=== PATIENT | female | born 1990 | race Hispanic/Latino ===

== ENCOUNTER 2017-07-25 15:44 | Outpatient (CLI) | payer MEDICAID | END 2017-07-25 15:45 | disposition home or self-care (01) | LOC: BICULT 15:44 | PROVIDERS: ATTEND Family Medicine | DX: N64.4 Mastodynia (principal) ==

== ENCOUNTER 2018-08-27 15:25 | Emergency (ER) | payer MEDICAID, SELFPAY ==
[2018-08-27 15:51] LABS: #Basophils 0.1 thou/uL (0.0-0.2); #Eosinphils 0.4 thou/uL (0.0-0.7); #Lymphocytes 2.6 thou/uL (1.20-3.40); #Monocytes 0.6 thou/uL (0.11-0.59); #Neutrophils 4.2 thou/uL (1.40-6.50); %Basophils 0.7 % (0.0-1.0); %Eosinophils 5.1 % (0.0-10.0); %Lymphocytes 32.8 % (21.0-51.0); %Monocytes 7.5 % (0.0-10.0); Mean Corpuscular HGB CONC 33.8 g/dL (32.0-36.0); Mean Corpuscular Hemoglobin 29.5 pg (27.0-31.0); Mean Corpuscular Volume 87.1 fL (78.0-98.0); Mean Platelet Volume 7.4 fL (7.4-10.4); Platelet Count 331 thou/uL (130-400); RBC Distribution Width 11.6 % (11.5-14.5); Red Blood Cell (RBC) Count 4.77 mill/uL (4.20-5.40); White Blood Cell (WBC) Count 7.8 thou/uL (4.8-10.8)
[2018-08-27 16:24] LABS: ALT (SGPT) 60 U/L (8-55); AST (SGOT) 35 U/L (5-34); Albumin 4.4 g/dL (3.5-5.0); Alkaline Phosphatase 98 U/L (40-150); Anion Gap 16 mmol/L (10-20); BUN (Urea Nitrogen) 8 mg/dL (7.0-18.7); Bilirubin, Total 0.3 mg/dL (0.2-1.2); Calc. Creatinine Clearance 0 mL/min (70-130); Calcium 9.6 mg/dL (7.8-10.44); Carbon Dioxide 20 mmol/L (22-29); Chloride 105 mmol/L (98-107); Estimated GFR-MDRD 90; Globulin 3.8 g/dL (2.4-3.5); Glucose 123 mg/dL (70-105); Potassium 4.2 mmol/L (3.5-5.1); Protein, Total 8.2 g/dL (6.0-8.3); Sodium 137 mmol/L (136-145)
[2018-08-27 16:29] LABS: BHCG - Serum Negative (NEGATIVE); Pregs Control Background? CLEAR/WHITE (CLR/WHITE); Pregs Control Bar Appear? YES (CONTROL BAR)
[2018-08-27 18:16] LABS: Bilirubin Negative (Negative); Blood, Urine Trace (Negative); Clarity CLOUDY (Clear); Glucose, Urine (Dipstick) Negative (Negative); Leukocyte Moderate (Negative); Nitrite Negative (Negative); Protein, Urine (Dipstick) 30 mg/dL (Neg-Trace); Specific Gravity, Urine 1.021 (1.002-1.036); Urobilinogen 0.2 mg/dL (0.2-1.0); pH, Urine 5.5 (5.0-9.0)
[2018-08-27 18:18] LABS: Bacteria/HPF 1+ HPF (None Seen)
[2018-08-27] MEDS ORDERED: Ketorolac Tromethamine 30 MG/ML VIAL ONE (18:18)
[2018-08-27 18:23] LABS: Pathc Cast-AUWi Flag 3.53 (0-2.49)
[2018-08-27 18:29] LABS: Hyaline Casts/LPF 0-3 HYALINE CAST LPF (0-3 Hyaline); Manual Microscopic Reviewed? No Path Casts Seen; RBC/HPF 0-3 HPF (0-3)
--- NOTE | 2018-08-27 18:53 | RAD ---
PORTABLE CHEST 08/27/18 PROVIDED CLINICAL HISTORY: Chest pain. FINDINGS: Comparison 07/13/08. Cardiac and mediastinal silhouette is within normal limits. Lungs appear clear. No pleural fluid or p neumothorax apparent. IMPRESSION: No evidence for an acute cardiopulmonary process. POS: [facility]
[2018-08-27] MEDS ORDERED: Morphine 4 MG/ML VIAL ONE (19:00)
[2018-08-27] MEDS ORDERED: Sulfameth/Trimethoprim DS 800-160mg TAB ONE (19:01)
[2018-08-27] MEDS ORDERED: cefTRIAXone\\ROCEPHIN 2 GM VIAL ONE (19:01)
--- NOTE | 2018-08-30 15:15 | EKG ---
Test Reason : DINH Blood Pressure : / mmHG Vent. Rate : 110 BPM Atrial Rate : 110 BPM P-R Int : 120 ms QRS Dur : 070 ms QT Int : 318 ms P-R-T Axes : 017 007 036 degrees QTc Int : 430 ms Sinus tachycardia Low voltage QRS Cannot rule out Anterior infarct , age undetermined Abnormal ECG Confirmed by MAU NEWMAN, BREANNA Rawls ([id number]), restaurant expeditor CASANDRA FLORENCE ([id number]) on 08/30/2018 3:15:02 PM Referred By: Confirmed By:BREANNA LEÓN MD
== END 2018-08-27 20:55 | disposition home or self-care (01) ==
LOC: ERS 15:25
DX: N12 Tubulo-interstitial nephritis, not specified as acute or chronic (principal); E05.90 Thyrotoxicosis, unspecified without thyrotoxic crisis or storm; Z79.899 Other long term (current) drug therapy
CPT/HCPCS: 36415; 71045; 80053; 81003; 81015; 84703; 85025; 93005; 96361; 96365; 96375; J0696; J1885; J2270

== ENCOUNTER 2019-01-14 21:11 | Emergency (ER) | payer OTHER ==
[2019-01-14 21:53] LABS: #Eosinphils 0.2 thou/uL (0.0-0.7); #Lymphocytes 3.8 thou/uL (1.20-3.40); #Monocytes 0.8 thou/uL (0.11-0.59); #Neutrophils 5.1 thou/uL (1.40-6.50); %Basophils 0.3 % (0.0-1.0); %Eosinophils 2.4 % (0.0-10.0); %Lymphocytes 38.3 % (21.0-51.0); %Monocytes 7.7 % (0.0-10.0); %Neutrophils 51.3 % (42.0-75.0); Mean Corpuscular HGB CONC 34.2 g/dL (32.0-36.0); Mean Corpuscular Volume 84.9 fL (78.0-98.0); Mean Platelet Volume 7.1 fL (7.4-10.4); Platelet Count 365 thou/uL (130-400); RBC Distribution Width 11.4 % (11.5-14.5); Red Blood Cell (RBC) Count 4.13 mill/uL (4.20-5.40); White Blood Cell (WBC) Count 9.9 thou/uL (4.8-10.8)
[2019-01-14 23:27] LABS: Bacteria/HPF None Seen HPF (None Seen); Bilirubin Negative (Negative); Blood, Urine Negative (Negative); Clarity Clear (Clear); Glucose, Urine (Dipstick) Normal (Negative); Leukocyte 25 Leu/uL (Negative); Nitrite Negative (Negative); Protein, Urine (Dipstick) Negative (Neg-Trace); RBC/HPF 0-3 HPF (0-3); Squamous Epithelial 0-3 HPF (0-3); Urobilinogen Normal mg/dL (Less than 2); WBC/HPF 0-3 HPF (0-3)
--- NOTE | 2019-01-15 08:12 | ULT ---
PRELIMINARY REPORT/[facility]/EMERGENCY AFTER HOURS PROCEDURE: PROCEDURE INFORMATION: Exam: US First Trimester, Transabdominal and US , Transvaginal US Duplex Artery an d Vein of the Abdominal and/or Reproductive Organs. Complete Ovaries Exam date and time: 01/14/2019 11:44 PM Clinical history: 28 years old, female; Lmp or gestational age (in weeks): 6w2d; Antepartum complicat ions; Bleeding; complicated by abdominal or pelvic pain; Lower; First trimester; ; Patient HX: Pelvic cramping pain, vaginal spotting tonight; Additional info: HX previous miscarriage TECHNIQUE: Imaging protocol: Real-time transabdominal obstetrical ultrasound of the maternal pelvis and a first trimester , less than 14 weeks 0 days, with image documentation. Transvaginal imaging was us ed for better evaluation of the fetus and adnexa. Real-time duplex ultrasound scan of the arterial and venous flow with color Doppler flow and spectral waveform analysis with image documentat ion. Complete duplex exam focused on the ovaries. Duplex exam was added to evaluate for torsion and o ther vascular conditions. COMPARISON: No relevant prior studies available. FINDINGS: Transabdominal ultrasound showed an intrauterine gestational sac. Transvaginal ultrasound was perform ed for evaluation of the pole. Duplex ultrasound scan with color Doppler flow and spectral wave form analysis was also performed for evaluation of pelvic and ovarian blood flow and torsion. GESTATION: Gestation: Single, living intrauterine gestation. Yolk sac is unremarkable. Heart rate: 120 bpm Placenta: Small subchorionic bleed. Amniotic fluid: Amniotic and chorionic fluid are normal for gestational age. BIOMETRY: Estimated gestational age: CRL 0.54 cm, 6w2d. MATERNAL: Uterus: Unremarkable. Cervix: Unremarkable. Right adnexa: Unremarkable. Normal duplex of the ovary. No evidence of torsion. Left adnexa: Left ovarian probable corpus luteal cyst. Otherwise unremarkable. Normal duplex of the o vary. No evidence of torsion. Intraperitoneal: No intraperitoneal free fluid. IMPRESSION: Single viable intrauterine . Small subchorionic hemorrhage. Thank you for allowing us to participate in the care of your patient. Dictated and Authenticated by: Jace Bravo MD 01/15/2019 12:40 AM Central Time ([place] & [place]) FINAL REPORT PELVIC ULTRASOUND: There is a viable single intrauterine . Evidence of a small subchorionic hemorrhage. I am in agreement with the preliminary report. POS: [facility]
== END 2019-01-15 01:28 | disposition home or self-care (01) ==
LOC: ERS 21:11
DX: O20.8 Other hemorrhage in early pregnancy (principal); O99.281 Endocrine, nutritional and metabolic diseases complicating pregnancy, first trimester; Z3A.01 Less than 8 weeks gestation of pregnancy
CPT/HCPCS: 36415; 76856; 81003; 81015; 84702; 85025; 86900; 86901

== ENCOUNTER 2019-01-15 06:45 | Outpatient (CLI) | payer OTHER ==
--- NOTE | 2019-01-15 08:06 | ULT ---
EXAM: Pelvic ultrasound HISTORY: Spotting in a female COMPARISON: None TECHNIQUE: Multiple grayscale and color Doppler images were obtained in a transabdominal and transvag inal pelvic ultrasound. Spectral analysis of the Doppler waveforms of the ovaries were performed. FINDINGS: UTERUS: There is an intrauterine gestational sac. This contains a yolk sac and pole. Hostetter-rump length: 6.76 mm which estimates gestational age at 6 weeks 4 days. A heart rate is detected at 114 bpm. A small hypoechoic region adjacent to the gestational saclike likely represents a small area of subch orionic hemorrhage. No free fluid is seen in the pelvis. RIGHT OVARY: Normal flow without focal mass. LEFT OVARY: Normal flow without focal mass. IMPRESSION: 1. Single live intrauterine with estimated age of 6 weeks 4 days. 2. Small subchorionic hemorrhage
== END 2019-01-15 06:46 | disposition home or self-care (01) ==
LOC: BICULT 06:45
DX: Z34.81 Encounter for supervision of other normal pregnancy, first trimester (principal); O99.89 Other specified diseases and conditions complicating pregnancy, childbirth and the puerperium; Z3A.01 Less than 8 weeks gestation of pregnancy
CPT/HCPCS: 76856

== ENCOUNTER 2019-01-25 17:44 | Emergency (ER) | payer OTHER ==
[2019-01-25 18:14] LABS: Hemoglobin 13.2 g/dL (12.0-16.0); Mean Corpuscular Hemoglobin 29.4 pg (27.0-31.0); Mean Corpuscular Volume 86.3 fL (78.0-98.0); Mean Platelet Volume 7.8 fL (7.4-10.4); Platelet Count 316 thou/uL (130-400); White Blood Cell (WBC) Count 21.3 thou/uL (4.8-10.8)
[2019-01-25] MEDS ORDERED: Dexamethasone 10 MG/ML VIAL ONE (18:31)
[2019-01-25] MEDS ORDERED: cefTRIAXone\\ROCEPHIN 2 GM VIAL ONE (18:31)
[2019-01-25 18:33] LABS: ALT (SGPT) 32 U/L (8-55); AST (SGOT) 17 U/L (5-34); Albumin 4.3 g/dL (3.5-5.0); Alkaline Phosphatase 73 U/L (40-110); Anion Gap 15 mmol/L (10-20); BUN (Urea Nitrogen) 7 mg/dL (7.0-18.7); Bilirubin, Total 0.5 mg/dL (0.2-1.2); Calc. Creatinine Clearance 0 mL/min (70-130); Calcium 9.2 mg/dL (7.8-10.44); Carbon Dioxide 17 mmol/L (22-29); Chloride 103 mmol/L (98-107); Estimated GFR-MDRD Greater than 90; Globulin 3.9 g/dL (2.4-3.5); Glucose 103 mg/dL (70-105); Potassium 3.9 mmol/L (3.5-5.1); Protein, Total 8.2 g/dL (6.0-8.3); Sodium 131 mmol/L (136-145)
[2019-01-25 18:34] LABS: Band 6 % (5-11); Lymphocytes 6 % (21-51); MDiff Complete? YES; Monocytes 8 % (0-10); Neutrophil 80 % (42-75); Platelet Morphology Comment Appears Adequate
[2019-01-25 18:47] LABS: Bilirubin Negative (Negative); Blood, Urine Negative (Negative); Clarity Turbid (Clear); Glucose, Urine (Dipstick) Normal (Negative); Leukocyte 250 Leu/uL (Negative); Nitrite Negative (Negative); Protein, Urine (Dipstick) Negative (Neg-Trace); RBC/HPF 0-3 HPF (0-3); Urobilinogen Normal mg/dL (Less than 2)
[2019-01-25 18:48] LABS: Bacteria/HPF 1+ HPF (None Seen)
== END 2019-01-25 19:55 | disposition home or self-care (01) ==
LOC: ERS 17:44
DX: O99.511 Diseases of the respiratory system complicating pregnancy, first trimester (principal); J02.0 Streptococcal pharyngitis; O99.281 Endocrine, nutritional and metabolic diseases complicating pregnancy, first trimester; E05.90 Thyrotoxicosis, unspecified without thyrotoxic crisis or storm; Z3A.08 8 weeks gestation of pregnancy
CPT/HCPCS: 80053; 81003; 81015; 83605; 85025; 87040; 87430; 93005; 96361; 96365; 96375; J0696; J1100

== ENCOUNTER 2019-04-22 09:47 | Outpatient (CLI) | payer OTHER ==
--- NOTE | 2019-04-22 11:47 | ULT ---
OB ULTRASOUND: HISTORY: anatomy. FINDINGS: A single live intrauterine gestation is seen with measurements corresponding to an estimated gestatio nal age of 20 weeks 3 days and an ROHIT of 09/06/2019. The estimated weight measures 352 g or 12 oz (29th percentile by Hadlock criteria). BIOMETRY: BPD: 4.69 cm (20 weeks 2 days) HC: 17.71 cm (20 weeks 2 days) AC: 15.32 cm (20 weeks 4 days) FL: 3.31 cm (20 weeks 3 days) heart rate measures 140 beats per minute. Cervical length measures 6 cm. BRIAN measures 14.7 cm. Placenta is posteriorly located without evidence of placenta previa. A low lying placenta is seen, wh ich appeared to resolve post urination. The spine was not well assessed due to movement. A three-vessel cord, cord insertion, kidneys, bladder, stomach, four-chambered heart, lateral v entricles, cerebellum, lips/nose and upper and lower extremities are visualized and are without defin ite anomalies. IMPRESSION: Single live intrauterine of 20 weeks' 3 days' estimated gestational age and an estimated da te of delivery of 09/06/2019. POS: [facility]
== END 2019-04-22 09:48 | disposition home or self-care (01) ==
LOC: BICULT 09:47
PROVIDERS: ATTEND Family Medicine
DX: Z34.82 Encounter for supervision of other normal pregnancy, second trimester (principal); Z3A.20 20 weeks gestation of pregnancy
CPT/HCPCS: 76805

== ENCOUNTER 2019-05-20 16:39 | Observation (INO) | payer MEDICAID, OTHER ==
[2019-05-20 17:25] VITALS: BP 116/59
[2019-05-20 17:26] VITALS: BMI 35.6
[2019-05-20] MEDS ORDERED: hydrALAZINE 20 MG/ML VIAL SLOW IVP PRN ×2 (17:43→20:30)
[2019-05-20 18:00] LABS: Amnisure Test No Membranes Rupture (No Rupture); Bacteria/HPF None Seen HPF (None Seen); Bilirubin Negative (Negative); Blood, Urine Negative (Negative); Clarity Clear (Clear); Glucose, Urine (Dipstick) Normal (Negative); Leukocyte Negative Leu/uL (Negative); Nitrite Negative (Negative); Protein, Urine (Dipstick) Negative (Neg-Trace); RBC/HPF None Seen HPF (0-3); Squamous Epithelial 0-3 HPF (0-3); Urobilinogen Normal mg/dL (Less than 2); WBC/HPF 0-3 HPF (0-3)
[2019-05-20 18:01] LABS: Amnisure Internal Control QC ACCEPTABLE (ACCEPTABLE)
--- NOTE | 2019-05-20 18:27 | ULT ---
[facility] History: Vaginal spotting. Questionable leakage of fluid. Comparison: OB ultrasound April 22, 2019 Findings: Real-time grayscale, color, and spectral analysis of the gravid uterus was performed. The position is vertex and the placenta is right fundal. Amniotic fluid index measures 8.7 cm. heart rate documented at 140 bpm. The cervix is closed and measures 3.5 cm in length. Biometry: Biparietal diameter: 5.89 cm, 24 week 1 day Head circumference: 22.47 cm, 24 week 2 day Abdominal circumference: 20.29 cm, 24 weeks 6 day Femur length: 4.26 cm, 23 weeks 6 day Estimated weight is 699 g, 29th percentile. Average ultrasound age is 24 week 2 day with estimated date of delivery September 07, 2019. Impression: Single viable intrauterine with amniotic fluid index of 8.7 cm. The cervix is c losed and measures 3.5 cm in length.
[2019-05-20] MEDS ORDERED: Butorphanol Tartrate 1 MG/ML VIAL SLOW IVP PRN (19:50)
[2019-05-20] MEDS ORDERED: Lactated Ringer's 1,000 ML IV SCH (20:00)
[2019-05-20] MEDS ORDERED: Promethazine HCl 25 MG/ML VIAL IM PRN (20:30)
[2019-05-20] MEDS ORDERED: Zolpidem Tartrate 5 MG TAB PO PRN (20:30)
[2019-05-20] MEDS ORDERED: Ondansetron PF 4 MG/2 ML Vial IVP PRN (20:30)
--- NOTE | 2019-05-20 20:34 | PDOC.LDHP ---
Labor and Delivery H&P Chief complaint: loss of fluid, other HPI: 28 yo LAF presents c/o cramping, spotting and possible LOF. Current gestational age (weeks): 24 Due date: 09/04/19 Dating criteria: last menstrual period Grav: 5 Para: 3 OB History Details: PNC with Dr. Sorensen, reports no complications Current complications: none Abnormal US findings: Yes (BRIAN=8) Past Medical History: none Current medications: pre- vitamins Previous surgical history: none Allergies/Adverse Reactions: Allergies Allergy/AdvReac Type Severity Reaction Status Date / Time No Known Drug Allergies Allergy Verified 05/20/19 17:23 Social history: none - Physical Exam Vital signs reviewed and normal: yes General: resting Lungs: nonlabored breathing Abdomen: gravid Extremeties: trace edema FHT: category 1 [place] contractions every: q 5-7 mins - Vaginal Exam cm dilated: 0 - Assessment 24 5/7 week IUP c/o Ucs UA and amniosure negative but BRIAN of 8 SSE is negative at this time - Plan Plan: observation in L&D (will OBs overnight and repeat SSE in AM)
[2019-05-20] MEDS: Lactated Ringer's 1,000 ML IV SCH (21:43)
[2019-05-20 22:10] VITALS: TEMP 98.3
[2019-05-21] MEDS: Lactated Ringer's 1,000 ML IV SCH (05:51)
--- NOTE | 2019-05-21 11:50 | ULT ---
LIMITED OB ULTRASOUND: Date: 05/21/2019 HISTORY: Evaluation for cervical length. FINDINGS: After translabial ultrasound, the cervical canal length shows to be at 3.2 cm. Fetus is vertex. Amnio tic fluid index is 10.6. IMPRESSION: 1. Amniotic fluid index of 10.6. 2. Cervical canal length of 3.2 cm. POS: [facility]
--- NOTE | 2019-05-22 00:33 | DIS ---
DATE OF ADMISSION: 05/20/2019 DATE OF DISCHARGE: 05/21/2019 ADMITTING DIAGNOSES: 1. Intrauterine at 24 weeks. 2. Vaginal spotting and cramping. Uterine contractions with threatened labor. DISCHARGE DIAGNOSES: 1. Intrauterine at 24 weeks. 2. Vaginal spotting and cramping. Uterine contractions with threatened labor. CONSULTATIONS: None. HOSPITAL COURSE: The patient is a 28-year-old G5, P3 female with an intrauterine at 24 weeks and 6 days, presenting to Labor and Delivery with complaints of cramping, spotting, or possible leakage of fluid. During the patient's evaluation, she was noted to have an BRIAN of 8. No evidence of urinary tract infection. AmniSure test was negative and sterile speculum exam was dry. However, given the overall picture, a conservative approach was taken and the patient was kept overnight for observation. This morning, the patient had initially felt some improvement in her cramping which changed to worsening of her cramping and some brown discharge. A repeat ultrasound this morning demonstrated a cervical length unchanged at 3.3 cm and BRIAN of 10 cm, improved from yesterday's measurements. The patient has been watched throughout the day here for any signs of worsening cramping, evidence of labor, leakage of fluid, or other concerning things. As such, none has occurred. The patient has continued to rest through the day without difficulty. No contractions are visible on the monitor. Fetus has had tracing that has been appropriate for 24-week gestation. This evening, the patient has been offered discharge home as that there has been no progression through the day. The patient feels comfortable going home and will be resting this weekend. PHYSICAL EXAMINATION: VITAL SIGNS: Her most recent vital signs; blood pressure is 120/78, heart rate of 85, respiratory rate of 20, temperature 97.9. GENERAL: She appears to be in no acute distress. ABDOMEN: Soft. : Repeat sterile speculum exam today showed very minimal dark brownish discharge, minimal in its nature and no active bleeding from the cervix. Cervix appears to be full, closed and nonlabored. On digital exam, the cervix feels closed and typical of multiparas individual. PLAN: The patient is being discharged home. She has an appointment to see Dr. Sorensen on the of the month. However, given her symptoms and presentation overnight, we have asked that she follow up with the nurse practitioner covering for Dr. Sorensen in the next week just for followup. The patient has been given labor precautions and again fetus is reassuring for gestational age. Job ID: [id number] [facility]
== END 2019-05-21 17:08 | disposition home health service (06) ==
LOC: L&D/OP 16:39 → L&D 20:30
PROVIDERS: ADMIT Obstetrics & Gynecology; ATTEND Obstetrics & Gynecology
DX: O26.852 Spotting complicating pregnancy, second trimester (principal); O47.02 False labor before 37 completed weeks of gestation, second trimester; Z3A.24 24 weeks gestation of pregnancy
CPT/HCPCS: 51701; 76815; 76816; 81003; 84112; 87480; 87510; 87660; 96361; 96374; 99285; A4353; G0378; J0595

== ENCOUNTER 2019-05-22 23:19 | Inpatient (IN) | payer OTHER ==
[2019-05-22 23:54] VITALS: BMI 35.9
[2019-05-23] MEDS ORDERED: Ondansetron PF 4 MG/2 ML Vial IVP PRN (00:43)
[2019-05-23] MEDS ORDERED: Promethazine HCl 25 MG/ML VIAL IM PRN (00:43)
[2019-05-23] MEDS ORDERED: hydrALAZINE 20 MG/ML VIAL SLOW IVP PRN ×2 (00:43)
--- NOTE | 2019-05-23 00:51 | PDOC.FPROB ---
FMR OB H&P: HPI - History of Present Illness Chief Complaint: vaginal bleeding, CTX Indentification: History of Present Illness: 28 yo at 25.1 wks (ROHIT 09/04/19) here for CTX and bleeding. Was discharged from the hospital yesterday afternoon. She had come b/o of same thing -CTX and VB. US was done which showed BRIAN ~8cm and CL ~3cm. Difficult to knot picker cloth CTX on monitor. She was admitted for obs overnight and repeat US showed BRIAN ~ 10cm with unchanged CL ~3cm. She was sent home with instructions to f/u. CTX became more frequent every 3-4 min this afternoon and had another episode of VB prompting her return. Denies any other sxs. No recent vaginal trauma. Endorsing frequent FM. No vaginal fluid loss. Primary Care Physician: Dr. Sorensen FMR OB H&P: Current - Care : 5 Para: 3 Gestational age: 25.1 Due date: 09/04/19 - OB Labs Blood type: unknown RH: unknown Antibody Screen: unknown HIV: unknown RPR: unknown HepBsAg: unknown Quad screen: unknown Gonorrhea: unknown Chlamydia: unknown FMR OB H&P: History - Past Medical History PMH: Denies - OB History OB History: 3 term 1 SAB at <10 wks - SAFETY COORDINATOR History SAFETY COORDINATOR History: Denies - Surgical History Sx History: Denies - Social History Social History: Denies TAD - Family History Family History: Non contributory FMR OB H&P: Medications - Current Home Medications: Medication Instructions Recorded Confirmed Type No.137/Iron/Folic Acd 1 tab PO DAILY 07/02/13 05/22/19 History [ Vitamin Tablet] Allergies/Adverse Reactions: Allergies Allergy/AdvReac Type Severity Reaction Status Date / Time No Known Drug Allergies Allergy Verified 05/20/19 17:23 FMR OB H&P: ROS - Review of Systems General: denies: fever/chills, weight/appetite/sleep changes ENT: denies: frequent nose bleed, sore throat Cardiovascular: denies: chest pain, palpitation Respiratory: denies: cough Gastrointestinal: denies: abdominal pain, cramping, nausea, vomiting Genitourinary (Female): reports: vaginal bleeding, contractions. denies: dysuria, hematuria, vaginal pain Musculoskeletal: denies: pain, stiffness, tenderness Neurologic: denies: numbness, syncope, weakness Endocrine: denies: cold intolerance, heat intolerance Psychological: denies: depression, anxiety FMR OB H&P: Vital Signs - Heart Tones Baseline: 150 Variability: moderate FMR OB H&P: Physical Exam - Physical Exam HEENT: normocephalic and atraumatic, EOMI, MMM, conjunctiva clear Neck: supple, FROM, trachea midline Heart: RRR, normal S1/S2 General: CTAB, no respiratory distress Abdomen: soft, gravid Skin: no rash, good tugor, capillary refill <2 seconds Psychiatric: intact recent and remote memory, good judgement and insight - Pelvic Exam Vulva: normal hair distribution, appropriate zion stage Deviation from normal: bloody mucoid discharge, cervix appears closed on exam, no pooling FMR OB H&P: A/P - Problem List (1) with 25 completed weeks gestation Current Visit: Yes Status: Acute Code(s): Z3A.25 - 25 WEEKS GESTATION OF (2) Vaginal bleeding Current Visit: Yes Status: Acute Code(s): N93.9 - ABNORMAL UTERINE AND VAGINAL BLEEDING, UNSPECIFIED Discussion: Date/Time: 05/23/19 0046 1. Vaginal bleeding & CTX in sIUP at 25 weeks-r/o PTL -Gross blood on exam, no identified site -FHT: 150, mod; unable to knot picker cloth CTX but pt reporting q3-4 min -Will give procardia per protocol -IVF bolus -stadol PRN for pain -U/S to assess cervical length & BRIAN -FFN sent -Steroids -Admit for observation overnight This H&P was discussed with Dr. Velasquez who agree with the above documentation and plan.
[2019-05-23] MEDS ORDERED: NIFEdipine 10 MG CAP PO SCH ×2 (01:00→01:30)
[2019-05-23 01:06] LABS: FFN Internal QC Analyzer PASS (PASS); FFN Internal QC Cassette PASS (PASS); Fetal Fibronectin POSITIVE (Negative)
[2019-05-23] MEDS: Lactated Ringer's 1,000 ML IV SCH ×3 (01:11→20:11)
[2019-05-23] MEDS: Betamet Acet/Betamet Na Ph 30 MG/5 ML VIAL IM SCH (01:41)
[2019-05-23 01:43] LABS: Hemoglobin 11.5 g/dL (12.0-16.0); Mean Corpuscular HGB CONC 33.7 g/dL (32.0-36.0); Mean Corpuscular Hemoglobin 29.6 pg (27.0-31.0); Mean Corpuscular Volume 87.8 fL (78.0-98.0); Mean Platelet Volume 8.5 fL (7.4-10.4); Platelet Count 281 thou/uL (130-400); RBC Distribution Width 11.4 % (11.5-14.5); Red Blood Cell (RBC) Count 3.87 mill/uL (4.20-5.40); White Blood Cell (WBC) Count 10.4 thou/uL (4.8-10.8)
--- NOTE | 2019-05-23 01:48 | PDOC.BPN ---
- Brief Progress Note Prelim U/S report shows CL 3.18cm, essentially unchanged from last one. 2.44cm through contraction. BRIAN 14cm. Starting nifedpine protocol. Discussed plan with patient.
[2019-05-23] MEDS ORDERED: Butorphanol Tartrate 1 MG/ML VIAL SLOW IVP PRN (02:13)
--- NOTE | 2019-05-23 02:13 | PDOC.BPN ---
- Brief Progress Note SVE: /high, CTX still difficult to pickling tank operator but went ahead and gave second dose of nifedpine Recheck in 4 hours
[2019-05-23 02:24] LABS: HBSAg Index 0.26 S/CO (0-0.99); Hep B Surf Ag Non-Reactive S/CO (NonReactive)
[2019-05-23 04:32] LABS: Syphilis Antibody Nonreactive (Nonreactive)
[2019-05-23] MEDS: NIFEdipine 10 MG CAP PO PRN ×2 (04:34→16:57)
--- NOTE | 2019-05-23 07:33 | PRG ---
DATE OF SERVICE: 05/23/2019 TIME OF SERVICE: 0710 hours. SUBJECTIVE: Ms. Yordan Rock is resting comfortably. She is hungry. She states her contractions have decreased. She reports an active fetus. She denies leakage of fluid or further vaginal bleeding. The patient remains afebrile with normal vital signs. Blood pressure is 100/68. heart rate tracing is in the 140s to 150s without decelerations noted. Contractions are not picked up on tocometer, but would not be expected due to the patient's obesity. The patient is a G5, P3. No history of previous deliveries at 25 weeks and 1 day with a cervix that is somewhat soft, which would not be uncommon for a grand multiparous patient, but was noted during contractions that the patient presented with shortened from 3.18 to 2.44 cm on dynamic real-time ultrasound. BRIAN was normal at 14 cm. The patient had previously been observed for contractions the day before. The patient has received one dose of corticosteroids at approximately midnight. PLAN: Continue labor and delivery observation. Would give Procardia again for contractions or magnesium sulfate for contractions worrisome for true labor. Repeat second dose of betamethasone at approximately midnight, we will obtain Neonatology consultation, anticipate that if the patient proceeds to true signs of labor with progression, would initiate transfer to tertiary care for higher level of care due to extreme prematurity at [address] Abby Reeder MD will be taking over her OB hospitalist at 0800 hours today. Job ID: [id number]
--- NOTE | 2019-05-23 09:42 | ULT ---
PRELIMINARY REPORT/[facility]/EMERGENCY AFTER HOURS PROCEDURE EXAM: US Obstetrical, Complete >14 weeks. CLINICAL HISTORY: HX: CONTRACTIONS AT 25WKS, VAG BLEEDING. SEE NOTES ON LAST IMAGE. THANKS TECHNIQUE: Transabdominal imaging of the maternal pelvis and a > 14 week gestation with image documen tation. COMPARISON: None provided. FINDINGS: FETUS: There is a single living intrauterine gestation, estimated clinical gestational age 25 weeks 1 day POSITION: position is cephalic. HEART RATE: The heart rate is 152 beats per minute. BIOMETRICS: Based on composite biometry, the estimated gestational age by ultrasound is 25 week s 0 days. ANATOMIC SURVEY: The visualized anatomy is unremarkable. PLACENTA: The placenta is located along the left lateral wall of the uterus extending towards the fun dus. No sonographic evidence for previa or abruption. AMNIOTIC FLUID: Within normal limits. CERVIX: Closed. Unremarkable as visualized. IMPRESSION: Single viable intrauterine . No acute abnormality. ELECTRONICALLY SIGNED BY: Joel Espitia DO May 23, 2019 2:43:42 AM FIBER WORKER FINAL REPORT OB ULTRASOUND: HISTORY: Contractions at 25 weeks, vaginal bleeding. FINDINGS: Real-time imaging of the pelvis shows a single viable intrauterine in a vertex presentation . The cervical canal length is 3.2 cm. The placenta is more fundal in location. No previa. The am niotic fluid index was 14.4. Visually the fluid appears borderline low. heart rate is 152 b.p .m. measurements are as follows: BPD 6.3 cm, 25 weeks 3 days Head circumference 22.7 cm, 24 weeks 5 days Abdominal circumference 20 cm, 24 weeks 4 days Femur length 4.6 cm, 25 weeks 3 days Limited evaluation of anatomy was performed on this more emergent exam. No abnormalities were grossly detected. IMPRESSION: 1. Single viable intrauterine in a vertex presentation. Overall measurements correspond t o a gestational age of 25 weeks 0 days with estimated date of delivery 09/05/2019. 2. Placenta which is more fundal in location. 3. This report is in agreement with the temporary report issued by [facility]. POS: [facility]
--- NOTE | 2019-05-23 19:16 | PDOC.NEOCO ---
- History Chief Complaint: vaginal bleeding & contractions History of Present Illness: 28 yo at 25.1 wks (ROHIT 09/04/19) here for CTX and bleeding. Was discharged from the hospital yesterday afternoon. She had come b/o of same thing -CTX and VB. US was done which showed BRIAN ~8cm and CL ~3cm. Difficult to continuous pickling line pickler CTX on monitor. She was admitted for obs overnight and repeat US showed BRIAN ~ 10cm with unchanged CL ~3cm. She was sent home with instructions to f/u. CTX became more frequent every 3-4 min this afternoon and had another episode of VB prompting her return. Denies any other sxs. No recent vaginal trauma. Endorsing frequent FM. No vaginal fluid loss. - Vital Signs Vital Signs are stable Admit Measurements Weight 97.976 kg - Diagnoses Patient Problems: Problem List Problem Status Onset with 25 completed weeks gestation Acute Vaginal bleeding Acute Spontaneous Vaginal Delivery Acute Plan: Plan: 28 yo at 25.1 wks (ROHIT 09/04/19) here for CTX and bleeding. Was discharged from the hospital yesterday afternoon. She had come b/o of same thing -CTX and VB. US was done which showed BRIAN ~8cm and CL ~3cm. Difficult to continuous pickling line pickler CTX on monitor. She was admitted for obs overnight and repeat US showed BRIAN ~ 10cm with unchanged CL ~3cm. She was sent home with instructions to f/u. CTX became more frequent every 3-4 min this afternoon and had another episode of VB prompting her return. Denies any other sxs. No recent vaginal trauma. Endorsing frequent FM. No vaginal fluid loss. I was consulted by Dr. Velasquez (OB Hospitalist) to talk with mom & discuss the short & prison complications associated with delivery at 25 weeks gestation. I met with both parents in mom's LDR 7 & discussed with them the survival at 25 weeks gestation, short term acute problems & continuous churn buttermaker problems & outcome. I explained to both parents that despite improved survival rate at 25 weeks gestation up to 70-80 %, these extremely low weight (ELBW) babies could have acute problems with include but not limited to: RDS & acute respiratory failure, PIE & pneumothorax, large PDA requiring medical treatment & if failed surgical ligation, Hypotension requiring support with dopamine, epinephrine & some times Hydrocortisone, Sepsis including fungal, bacterial & requiring antibiotic therapy, NEC & possible short gut syndrome if NEC is severe with loss of viable bowels, recurrent anemia requiring PRBC's transfusion , acute IVH ( Grade 1-4 ) with higher rate of grade 3 & 4 in (ELBW), ROP stage 1 -5 with possible need for laser surgery or anti VEGF intravitreal agent or surgery, feeding intolerance, apnea of prematurity, myopia, amblyopia, retinal detachment etc. I also discussed with her the possible prison p[roblems which include but not limited to: Chronic lung disease in some instances nasal cannula home treatment , tracheostomy & home vent treatment, also discussed with her the possibility of moderate to severe developmental delay especially if associated with grade 3 & 4 IVH, with possible affect on motor and sensory involvement including delated walking, delayed talking, speech impairment, cerebral palsy requiring physical therapy, occupational therapy, speech therapy treatment, need for referral for milk route supervisor intervention center in [facility] for F/U and management of cases according to the needs. I emphasized to her that not all 25 weeks premie will have all of the above findings, some will develop some of the above & some will have better prognosis if they do good during the course of hospitalization. I answered all mom questions to her satisfaction. The father did not have questions. I explained to the mom if she progress to deliver, we will have a team attending her baby's delivery & resuscitation & will update her once we stabilze the baby. Mom appreciated all of the information given & had no further questions. I spent 55 minutes in discussion of the above findings & answering her questions. Thank you for the consult. Azeem Perez MD Sql Analyst of Pediatrics [facility]
[2019-05-24] MEDS: Betamet Acet/Betamet Na Ph 30 MG/5 ML VIAL IM SCH (01:38)
[2019-05-24] MEDS: Lactated Ringer's 1,000 ML IV SCH ×3 (05:23→22:15)
[2019-05-24] MEDS: NIFEdipine 10 MG CAP PO PRN (05:23)
--- NOTE | 2019-05-24 07:16 | PDOC.BPN ---
- Brief Progress Note S: Patient reports having several painful ctx overnight but improved now. Has had some blood tinged discharge since yesterday but no heavy bleeding. +FM. No other issues. O: T: 98.8, BP: 98/53, P: 91 R: 16 Gen - AAO, NAD Chest - Nonlabored Abd - Gravid, NTTP Am NST: Pending A/P: 28 y/o at 25w2d admitted for PTL with ctx and +FFN 1) s/p celestone x2 - last dose around midnight 2) ctx continued but intermittent, on procardia 3) Continue to monitor. Consider d/c procardia later today.
[2019-05-24] MEDS: Acetaminophen 500 MG TAB PO PRN ×2 (12:50→20:50)
--- NOTE | 2019-05-24 17:33 | PDOC.EVN ---
Event Note - Event Note Event Note: OBGYN Faculty L&D EGA 25 weeks At bedside now Patient well, in NAD. Second celestone given last PM...our plan is observation tonight and prob [facility] home in the morning. Last procardia was this am at around 0500/
[2019-05-25] MEDS: Lactated Ringer's 1,000 ML IV SCH (06:05)
--- NOTE | 2019-05-25 06:28 | PDOC.EVN ---
Event Note - Event Note Event Note: 629 OBGYN Patient seen at bedside See dictation OK for discharge home with DX: arrested threatened PTL
--- NOTE | 2019-05-25 08:06 | DIS ---
DATE OF ADMISSION: 05/23/2019 DATE OF DISCHARGE: 05/25/2019 The patient was admitted by Dr. Kari Garrett, who was on-call with Dr. Velasquez. HOSPITAL COURSE: In brief, this is a 28-year-old, G5, P3, at 25 weeks and 1 day on admission with an estimated due date of 09/04/2019, who came in for some irregular contractions. She had a cervical length performed, which was about 3 cm. She was admitted overnight for repeat ultrasound, which showed that the cervical length was actually pretty much unchanged at about 3 cm, but because she had some increased contractions, it was planned to keep her to give her steroid use. Procardia was also given for contractions. It is important to note that even though her cervical length was 3 cm, she did have a fibronectin, which was positive so, even though it is outside of protocol, the patient was kept for observation just to be conservative. Admission hepatitis B surface antigen and syphilis serologies were both negative. The patient completed her steroid course without complication. It is important to note that magnesium sulfate was not given because it was not thought that she needed neuroprotection as her cervical length was still normal. This was per the on-call team. I evaluated the patient on May 24, 2019, and then again this morning, which is May 25, 2019, and I found her to be in no acute distress without evidence of labor progression. When I evaluated the patient on Saturday morning, which is May 25, I found her to be relaxed and calm with no evidence of active labor. She felt that her contractions had also decreased, to gone way, and she felt comfortable going home. She had a good movement reported. The plan was to discharge her home today, which was Saturday and have her follow up with Dr. Sorensen. DISCHARGE INSTRUCTIONS: To avoid intercourse for 2 weeks just to be conservative, although there is no restriction for bed rest. FINAL DIAGNOSES: 1. Arrested, threatened labor. 2. Twenty-five weeks gestation. PRINCIPAL PROCEDURES: 1. Steroid administration and external monitoring. 2. She also had an obstetrical ultrasound. Job ID: [id number]
== END 2019-05-25 06:55 | disposition home or self-care (01) | DRG 833 ==
LOC: L&D/OP 23:19 → L&D 05-23 01:02
PROVIDERS: ADMIT Family Medicine; ATTEND Family Medicine
DX: O60.02 Preterm labor without delivery, second trimester (principal); Z3A.25 25 weeks gestation of pregnancy
CPT/HCPCS: 36415; 76815; 82731; 85027; 86780; 86850; 86900; 86901; 87340; 99285; J0595; J0702

== ENCOUNTER 2019-06-09 05:27 | Inpatient (IN) | payer OTHER ==
[2019-06-09] MEDS ORDERED: hydrALAZINE 20 MG/ML VIAL SLOW IVP PRN ×2 (06:18→06:41)
[2019-06-09] MEDS ORDERED: Lactated Ringer's 1,000 ML IV SCH (06:30)
[2019-06-09] MEDS ORDERED: Acetaminophen 500 MG TAB PO PRN (06:41)
[2019-06-09] MEDS ORDERED: Ondansetron PF 4 MG/2 ML Vial IVP PRN (06:41)
[2019-06-09] MEDS ORDERED: Calcium Gluc 4.6 MEQ/10 ML (100 MG/ML) SLOW IVP PRN (06:43)
[2019-06-09] MEDS ORDERED: Penicillin G Potassium 5 MILL.UNITS VIAL ONE (06:44)
[2019-06-09] MEDS ORDERED: Magnesium Sulfate 20 GM/WATER 500 ML BAG IVPB SCH (06:45)
[2019-06-09 06:47] LABS: Bilirubin Negative (Negative); Blood, Urine Negative (Negative); Clarity Clear (Clear); Glucose, Urine (Dipstick) Normal (Negative); Leukocyte Negative Leu/uL (Negative); Nitrite Negative (Negative); Protein, Urine (Dipstick) Negative (Neg-Trace); RBC/HPF 0-3 HPF (0-3); Squamous Epithelial 0-3 HPF (0-3); Urobilinogen Normal mg/dL (Less than 2); WBC/HPF 0-3 HPF (0-3)
[2019-06-09 06:48] LABS: Bacteria/HPF 1+ HPF (None Seen)
[2019-06-09] MEDS ORDERED: Morphine 4 MG/ML VIAL ONE (06:59)
[2019-06-09] MEDS: Lactated Ringer's 1,000 ML IV SCH (07:00)
[2019-06-09] MEDS ORDERED: Morphine 4 MG/ML VIAL SLOW IVP SCH (07:00)
[2019-06-09] MEDS: Betamet Acet/Betamet Na Ph 30 MG/5 ML VIAL IM SCH (07:10)
[2019-06-09 07:45] VITALS: BMI 36.6
[2019-06-09 07:50] LABS: Hemoglobin 10.4 g/dL (12.0-16.0); Mean Corpuscular HGB CONC 33.9 g/dL (32.0-36.0); Mean Corpuscular Hemoglobin 29.7 pg (27.0-31.0); Mean Corpuscular Volume 87.7 fL (78.0-98.0); Mean Platelet Volume 7.6 fL (7.4-10.4); Platelet Count 272 thou/uL (130-400); RBC Distribution Width 11.3 % (11.5-14.5); Red Blood Cell (RBC) Count 3.49 mill/uL (4.20-5.40)
--- NOTE | 2019-06-09 07:56 | ULT ---
Limited Obstetrical Ultrasound INDICATION: Evaluate weight and position TECHNIQUE: Grayscale, M-mode Doppler, color Doppler and spectral Doppler images were obtained. Galdino muniz is focused on the clinical indication. COMPARISON: Prior ultrasound dated May 23, 2019 FINDINGS: GESTATION: Number of gestations: Single. Presentation: Cephalic. heart rate: 150 bpm. Placental location: Posterior Previa: No evidence for previa. Cervical length: Not well seen BRIAN: 11.4 cm. LIMITED SURVEY: No abnormality as visualized. BIOMETRY: Biparietal diameter: 6.43cm, 26 weeks 0 days, 4th percentile. Head circumference: 24.20 cm, 26 weeks and 2 days, 2nd percentile Abdominal circumference: 24.04 cm, 28 weeks 2 days, 66th percentile Femoral length: 4.98cm, 26 weeks 6 days, 16th percentile Estimated weight: 1078 g +/- 160g 2 lbs. 6 oz. +/- 6 ounces, 33rd percentile The average gestational age by ultrasound is 26 weeks and 5 dayswith estimated due date of September 09. The estimated dates by clinical data is 27 weeks 4 dayswith estimated due date of September 04, 2019. IMPRESSION: 1. Single live intrauterine gestation with size and dates as above. 2. Asymmetric size measurements for the head when compared to the abdominal circumference. The qualit y of the measurements was somewhat limited. Would recommend a follow-up examination in 1-2 weeks for reevaluation of growth.
--- NOTE | 2019-06-09 10:22 | HP ---
PRIMARY OB: Dr. Paul Sorensen. CHIEF COMPLAINT: Abdominal pain. HISTORY OF PRESENT ILLNESS: The patient is a 28-year-old G5, P3 female with an intrauterine at 27 weeks and 4 days, who is re-presenting to Labor and Delivery for uterine contractions that have become much more severe over the course of the night. The patient has had 2 previous admissions for contractions and concerns of labor. On her last admission, cervical length was normal at 3.2 cm on 05/23/2019. The patient reports that she has been on bedrest and continues to contract intermittently with vaginal discharge that is bloody at times. With the worsening gnozalo, patient is here. She denies any discharge currently and denies any urinary urgency or frequency, any fever, fall, headache , chest pain, shortness of breath, nausea, vomiting, diarrhea, constipation, hip problems, knee problems, muscle weakness. PAST MEDICAL HISTORY: Negative. PAST SURGICAL HISTORY: Negative. ALLERGIES: NO KNOWN DRUG ALLERGIES. MEDICATIONS: vitamins. SOCIAL HISTORY: Denies drug, alcohol, tobacco use. OB LABORATORY DATA: The patient's hepatitis B surface antigen is nonreactive on 05/23/2019. Syphilis is nonreactive on 05/23/2019. Her blood type is B positive. Negative antibody screen on 05/23/2019. REVIEW OF SYSTEMS: Per HPI. PHYSICAL EXAMINATION: VITAL SIGNS: Blood pressure is 104/53, heart rate of 107, respiratory rate 18, temperature 98.3. GENERAL: She appears to be in no acute distress. She is alert, oriented, cooperative, and pleasant to interact with. HEAD: Normocephalic, atraumatic. LUNGS: Clear to auscultation bilaterally. HEART: Regular rate and rhythm. ABDOMEN: Soft, gravid, obese. EXTREMITIES: Nontender, nonedematous. GENITALIA: Vulva is without masses, lesions, or erythema. Vagina on sterile speculum exam has a dark bloody mucousy discharge. Cervix is visibly closed. There is no pooling and there is no other discharge present. On cervical exam, the patient is 2, 60, and -3 station with what feels to be a head with presenting hands, but unsure. heart tracing shows the fetus with a baseline in the 150s with moderate long-term variability. Contractions not visible on the monitor. Urinalysis shows urine negative for ketones, nitrites, leukocyte esterase, white blood cells, and has 1+ bacteria. ASSESSMENT AND PLAN: The patient is a 28-year-old female with an intrauterine at 27 weeks and 4 days, experiencing chronic uterine contractions, which may be a result from possible small chronic abruption. The patient has had cervical change since her last admission, significant, and given her overall picture, we will be treating the patient for labor, placing her on magnesium for tocolysis and steroids for lung maturity. We have collected a GBS and will be starting her on penicillin for GBS prophylaxis. Ultrasound has demonstrated a fetus in vertex presentation. The patient will be left on clear diet until we can confirm that the patient is not entering into an active labor pattern. Her primary OB, Dr. Paul Sorensen has been updated and will be admitted to him. Fetus is reassuring for gestational age. Job ID: [id number] MTDD
[2019-06-09] MEDS ORDERED: Penicillin G 2.5 MILL.units 50 ML ONE (11:11)
[2019-06-09] MEDS ORDERED: Azithromycin 1,000 MG in Sodium Chloride 0.9% 500 ML IVPB SCH (13:00)
[2019-06-09] MEDS: Penicillin G 2.5 MILL.units 2.5 MILL.UNITS in Premix Bag 1 BAG IVPB SCH ×2 (15:22→20:00)
[2019-06-09] MEDS: Magnesium Sulfate 20 gm/500 ml 20 GM/500 ML BAG IVPB SCH (15:22)
[2019-06-10] MEDS: Penicillin G 2.5 MILL.units 2.5 MILL.UNITS in Premix Bag 1 BAG IVPB SCH ×7 (00:13→21:20)
[2019-06-10] MEDS: Magnesium Sulfate 20 gm/500 ml 20 GM/500 ML BAG IVPB SCH ×2 (01:23→12:46)
[2019-06-10] MEDS: Lactated Ringer's 1,000 ML IV SCH ×3 (03:24→21:19)
[2019-06-10] MEDS: Betamet Acet/Betamet Na Ph 30 MG/5 ML VIAL IM SCH (07:30)
[2019-06-11] MEDS: Penicillin G 2.5 MILL.units 2.5 MILL.UNITS in Premix Bag 1 BAG IVPB SCH ×2 (02:35→06:58)
[2019-06-11] MEDS: Magnesium Sulfate 20 gm/500 ml 20 GM/500 ML BAG IVPB SCH (02:36)
[2019-06-11] MEDS: Lactated Ringer's 1,000 ML IV SCH ×4 (11:58→22:43)
[2019-06-11] MEDS ORDERED: AMOXicillin 250 MG CAP PO SCH (12:00)
[2019-06-11] MEDS: AMOXicillin 250 MG CAP PO SCH ×2 (16:17→22:41)
[2019-06-11] MEDS: Ferrous Sulfate 325 MG TAB PO SCH (16:23)
[2019-06-12] MEDS: Acetaminophen 500 MG TAB PO PRN ×2 (02:03→15:19)
[2019-06-12] MEDS ORDERED: Morphine 2 MG/ML SYRINGE IM SCH (02:15)
[2019-06-12] MEDS ORDERED: Promethazine HCl 25 MG/ML VIAL IM SCH (02:15)
[2019-06-12] MEDS: Lactated Ringer's 1,000 ML IV SCH ×4 (02:24→21:58)
--- NOTE | 2019-06-12 03:43 | PDOC.EVN ---
Event Note - Event Note Event Note: 0340: OBGYN Inspector Publications Patient with continued on/off CTX. Rachel Trujillo has just checked her cervix and cervix is basically unchanged at -/ -2. No active LOF or VB. Due to patient complaint of CTX on/off, I have discussed with Rachel Trujillo that we will transfer to L&D and start mag for neuroprotectioin to be safe. GBS coverage as well.
--- NOTE | 2019-06-12 03:43 | PDOC.EVN ---
Event Note - Event Note Event Note: GBS not yet resulted for PNG for now
[2019-06-12] MEDS ORDERED: Calcium Gluc 4.6 MEQ/10 ML (100 MG/ML) SLOW IVP PRN (03:44)
[2019-06-12] MEDS ORDERED: NS / Oxytocin 40 units/1000ml 1,000 ML IV PRN (03:44)
[2019-06-12] MEDS ORDERED: Lidocaine 1% (PF) 30 ML VIAL SC PRN (03:44)
[2019-06-12] MEDS ORDERED: Penicillin G Potassium 5 MILL.UNITS in Sodium Chloride 0.9% 100 ML IVPB SCH (04:00)
[2019-06-12] MEDS ORDERED: Magnesium Sulfate 20 GM/WATER 500 ML BAG IVPB SCH (04:00)
--- NOTE | 2019-06-12 04:12 | PDOC.EVN ---
Event Note - Event Note Event Note: Patient now in APU bed. I have seen her at bedside and reviewed plan. Very stable at this point. Mag being hung.
[2019-06-12] MEDS: Penicillin G 2.5 MILL.units 2.5 MILL.UNITS in Premix Bag 1 BAG IVPB SCH ×4 (08:16→21:58)
[2019-06-12] MEDS: Magnesium Sulfate 20 gm/500 ml 20 GM/500 ML BAG IVPB SCH ×2 (12:21→22:32)
[2019-06-12] MEDS: Ferrous Sulfate 325 MG TAB PO SCH (19:01)
[2019-06-13] MEDS: Penicillin G 2.5 MILL.units 2.5 MILL.UNITS in Premix Bag 1 BAG IVPB SCH ×2 (01:33→11:07)
[2019-06-13] MEDS ORDERED: Ibuprofen 800 MG TAB PO PRN (03:30)
--- NOTE | 2019-06-13 03:33 | PDOC.BPN ---
- Brief Progress Note Patient noted to have contractions this AM on NST, so she was brought back to L& D for close monitoring. Cervical exam at that time unchanged. She was started on Mg for neuroprotection and tocolysis. Pen G started as GBS status unknown at that time. Patient with slight increase in vaginal bleeding around 2:30 AM noted on pad. Patient with minimally painful contractions that started around that time that she felt 15 or so minutes apart. She states that the contractions were nowhere near as painful as they were earlier in the day. Strip at that time showed a few variables, but reactive NST. Appx one hour later , patient called stating her contractions were q4-5 min apart and very painful, enough so that she was asking for pain medication. SVE was performed and cervix noted to be dilated to 6 cm. Last cervical exam prior to this was done at 3 AM the following morning. Suspect patient made change rather quickly with increase in contraction frequency and intensity. Dr. Sorensen was notified. NICU was called. Dr. Reeder was made aware. Patient transitioned to labor room. I had extensive discussion with patient about plan of care. She was very understanding. Bedside ultrasound performed and infant noted to be vertex. Patient still on Mg and Pen G. Will recheck in one hour to assess for progression. Coco Griffith, DO PGY-3
--- NOTE | 2019-06-13 04:42 | PDOC.OPDEL ---
OB Operative/Delivery Note Delivery Dr/Surgeon: Varinder Griffith Pre-Delivery Diagnosis: other (PTL with PTD) Procedure/Post Delivery Dx: spontaneous vaginal delivery Weeks gestation: 28 (28.1 wks) Anesthesia: none - Findings A Sex: female - 1 min: 9 - 5 min: 9 - Additional Findings/Plan Placenta delivered: spontaneous Repaired Obstetrical Laceration: none Estimated blood loss: 374 mL Compilations/Other Findings: Please see dictation for full details. Addendum - Attending - Attending Attestation Date/Time: 06/13/19 0820 I was present for the entire umcomplicated delivery of infant and placenta.
[2019-06-13 04:49] LABS: Actual Bicarbonate (HCO3v) 23 mEq/L (22-28); Base Excess 0.5 mEq/L (-2.0 to +3.0); pH (Cord, venous) 7.48 (7.32-7.43)
[2019-06-13 04:52] LABS: Base Excess (BEa) 0.6 mEq/L (-2.0 to +3.0)
[2019-06-13] MEDS ORDERED: Bisacodyl 10 MG SUPP PR PRN (05:40)
[2019-06-13] MEDS ORDERED: NS / Oxytocin 40 units/1000ml 1,000 ML IV SCH (05:40)
[2019-06-13] MEDS ORDERED: Lanolin Ointment 7 GM TUBE TOP PRN (05:40)
[2019-06-13] MEDS ORDERED: hydrALAZINE 20 MG/ML VIAL SLOW IVP PRN (05:40)
[2019-06-13] MEDS ORDERED: Benzocaine-Menthol 82.5 ML CAN TOP PRN (05:40)
[2019-06-13] MEDS ORDERED: Adacel (T-DAP) 0.5 ML SYRINGE IM ONE (05:40)
[2019-06-13] MEDS ORDERED: diphenhydrAMINE 25 MG CAP PO PRN (05:40)
[2019-06-13] MEDS ORDERED: Milk Of Magnesia 30 ML UDCUP PO PRN (05:40)
[2019-06-13] MEDS ORDERED: Ondansetron PF 4 MG/2 ML Vial IVP PRN (05:40)
[2019-06-13] MEDS: Prenatal Vitamin 1 TAB PO SCH (08:31)
[2019-06-13] MEDS: Docusate Calcium (SURFAK) 240 MG CAP PO SCH ×2 (08:32→19:58)
[2019-06-13] MEDS: Ferrous Sulfate 325 MG TAB PO SCH ×2 (09:33→17:23)
[2019-06-13] MEDS: Ibuprofen 800 MG TAB PO SCH ×2 (13:42→19:57)
[2019-06-14] MEDS: Ibuprofen 800 MG TAB PO SCH ×3 (05:53→21:54)
[2019-06-14] MEDS: Docusate Calcium (SURFAK) 240 MG CAP PO SCH ×2 (08:31→21:54)
[2019-06-14] MEDS: Prenatal Vitamin 1 TAB PO SCH (08:31)
[2019-06-14] MEDS: Ferrous Sulfate 325 MG TAB PO SCH ×2 (08:32→17:14)
[2019-06-14 13:40] LABS: Bacteria/HPF 4+ HPF (None Seen); Bilirubin Negative (Negative); Blood, Urine 3+ (Negative); Clarity Clear (Clear); Glucose, Urine (Dipstick) Normal (Negative); Leukocyte 75 Leu/uL (Negative); Nitrite Negative (Negative); Protein, Urine (Dipstick) 10 mg/dL (Neg-Trace); RBC/HPF Greater than 50 HPF (0-3); Squamous Epithelial 0-3 HPF (0-3); Urobilinogen Normal mg/dL (Less than 2)
[2019-06-14] MEDS ORDERED: Cephalexin 250 MG CAP PO SCH (18:00)
[2019-06-15] MEDS: Ibuprofen 800 MG TAB PO SCH (05:45)
[2019-06-15 08:27] VITALS: BP 105/61; TEMP 98.4
[2019-06-15] MEDS: Ferrous Sulfate 325 MG TAB PO SCH (08:45)
[2019-06-15] MEDS: Prenatal Vitamin 1 TAB PO SCH (08:52)
[2019-06-15] MEDS: Docusate Calcium (SURFAK) 240 MG CAP PO SCH (08:53)
[2019-06-15] MEDS ORDERED: Cephalexin 250 MG CAP PO SCH (09:00)
[2019-06-15] MEDS ORDERED: Measles/Mumps/Rubella 10 MCG/0.5 ML VIAL SC ONE (10:00)
--- NOTE | 2019-06-15 10:26 | DN ---
DATE OF PROCEDURE: 06/13/2019 DELIVERING PHYSICIAN: Dr. Coco Griffith. ATTENDING PHYSICIAN: Dr. Abby Reeder. PROCEDURE PERFORMED: Spontaneous vaginal delivery. ANESTHESIA: None. QUANTITATIVE BLOOD LOSS: 374 mL PREOPERATIVE DIAGNOSES: 1. labor. 2. Suspected small chronic abruption. POSTOPERATIVE DIAGNOSES: 1. intrauterine , delivered. 2. Suspected small chronic abruption. INDICATIONS: This is a 28-year-old G5, P3-0-1-3, at 28 and 1 weeks' gestational age, who was noted to have increased vaginal bleeding on early AM. The patient had come in initially several days ago due to contractions and vaginal bleeding. She was placed on bedrest and monitored due to concerns for labor. 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 Her cervix remained unchanged at that time with 2 cm dilation, 50% effacement and -2 station. On the onset of bleeding, the patient noted to be having contractions maybe every 15 minutes, but notes that they were not very strong and were definitely reduced in intensity compared to earlier the previous morning. Approximately 1 hour later, the patient called out stating she was having very painful contractions that were occurring every 5 minutes. A vaginal exam was performed at that time, which showed that the patient was dilated to 6 cm. She was subsequently moved over to a labor bed in anticipation for vaginal delivery. The NICU team was notified of the potential for an imminent delivery. The patient did receive 2 doses of steroids two weeks ago as well as 2 doses of steroids during this admission. DELIVERY NOTE: This is a 28-year-old, G5, P3-0-1-3 at 28 and 1 weeks, who delivered a viable female at 4:14 AM on via spontaneous vaginal delivery. Please see details regarding antepartum course as indicated above. A vigorous female was delivered over an intact perineum. Due to the size of the , both shoulders delivered at the same time with the remainder of the body to follow. There was no cord. The head was held down, and mouth and nares were bulb suctioned. Cord was clamped and cut, and cord blood was collected after segment for blood gas was obtained. The placenta was delivered intact with a 3-vessel cord noted and sent for pathology. Fundal massage was performed, and the fundus was firm. The cervix and vagina were inspected and found to be free of lacerations. Due to prematurity and size of , she was taken to the NICU for recovery/care. The Apgars for the were 9 and 9 at one and five minutes respectively. The patient tolerated the delivery well and went to for routine recovery/care. Job ID: [id number] MTDD
== END 2019-06-15 11:50 | disposition home or self-care (01) | DRG 805 ==
LOC: L&D/OP 05:27 → L&D 07:00 → 3SW 06-11 11:40 → L&D 06-12 03:51 → 3SW 06-13 06:37
PROVIDERS: ADMIT Family Medicine; ATTEND Family Medicine
PROC: 10E0XZZ Delivery of Products of Conception, External Approach (ICD-10-PCS; principal; 2019-06-13)
DX: O60.14X0 Preterm labor third trimester with preterm delivery third trimester, not applicable or unspecified (principal); O45.93 Premature separation of placenta, unspecified, third trimester; Z37.0 Single live birth; Z3A.28 28 weeks gestation of pregnancy
CPT/HCPCS: 36415; 51702; 59025; 76815; 81001; 82805; 85027; 86850; 86900; 86901; 87081; 87804; 88307; 90707; 90715; 99285; J0456; J0702; J2270; J2540; J2550; J3475; J3490; J7050

== ENCOUNTER 2020-01-12 18:51 | Emergency (ER) | payer OTHER ==
[2020-01-12 19:43] LABS: #Eosinphils 0.1 thou/uL (0.0-0.7); #Lymphocytes 2.4 thou/uL (1.20-3.40); #Monocytes 0.5 thou/uL (0.11-0.59); #Neutrophils 2.7 thou/uL (1.40-6.50); %Basophils 0.3 % (0.0-1.0); %Eosinophils 2.2 % (0.0-10.0); %Lymphocytes 42.2 % (21.0-51.0); %Monocytes 8.1 % (0.0-10.0); %Neutrophils 47.4 % (42.0-75.0); Hemoglobin 13.3 g/dL (12.0-16.0); Mean Corpuscular HGB CONC 34.7 g/dL (32.0-36.0); Mean Corpuscular Hemoglobin 30.2 pg (27.0-31.0); Mean Corpuscular Volume 86.9 fL (78.0-98.0); Mean Platelet Volume 9.6 fL (7.4-10.4); Platelet Count 228 thou/uL (130-400); RBC Distribution Width 11.2 % (11.5-14.5); Red Blood Cell (RBC) Count 4.41 mill/uL (4.20-5.40); White Blood Cell (WBC) Count 5.7 thou/uL (4.8-10.8)
[2020-01-12 19:58] LABS: ALT (SGPT) 173 U/L (8-55); AST (SGOT) 108 U/L (5-34); Albumin 4.2 g/dL (3.5-5.0); Alkaline Phosphatase 94 U/L (40-110); Anion Gap 17 mmol/L (10-20); BUN (Urea Nitrogen) 7 mg/dL (7.0-18.7); Bilirubin, Total 0.3 mg/dL (0.2-1.2); Calc. Creatinine Clearance 0 mL/min (70-130); Calcium 9.1 mg/dL (7.8-10.44); Carbon Dioxide 22 mmol/L (22-29); Chloride 104 mmol/L (98-107); Estimated GFR-MDRD Greater than 90; Glucose 116 mg/dL (70-105); Potassium 4.1 mmol/L (3.5-5.1); Protein, Total 8.2 g/dL (6.0-8.3); Sodium 139 mmol/L (136-145)
[2020-01-12] MEDS ORDERED: Fentanyl 100 MCG/2 ML VIAL ONE (19:59)
[2020-01-12] MEDS ORDERED: Ketorolac Tromethamine 30 MG/ML VIAL ONE (19:59)
[2020-01-12 20:13] LABS: BHCG - Serum Negative (NEGATIVE); Pregs Control Background? CLEAR/WHITE (CLR/WHITE); Pregs Control Bar Appear? YES (CONTROL BAR)
--- NOTE | 2020-01-12 20:20 | RAD ---
CHEST ONE VIEW: 01/12/20 COMPARISON: 08/27/18 HISTORY: Pain. FINDINGS: Normal cardiac silhouette. Pulmonary vessels and hilar re normal. Costophrenic angles are clear. Dimi nished lung volumes, likely due to poor inspiratory effort. There may be a right lower lobe infiltrat e. No pneumothorax or acute osseous abnormality. IMPRESSION: Diminished lung volumes. Possible right lower lobe infiltrate. POS: PPP
[2020-01-12] MEDS ORDERED: cefTRIAXone\\ROCEPHIN 1 GM VIAL ONE (21:26)
[2020-01-13 13:16] LABS: SARS-CoV-2 MS2 Positive; SARS-CoV-2 N Gene Negative; SARS-CoV-2 S Gene Negative; SARS-CoV-2 by NAA Not Detected (NotDetected); SARS-CoV-2 orf1ab Negative
== END 2020-01-12 21:40 | disposition home or self-care (01) ==
LOC: ERS 18:51
DX: J18.9 Pneumonia, unspecified organism (principal); R07.9 Chest pain, unspecified; Z20.828 Contact with and (suspected) exposure to other viral communicable diseases; E05.90 Thyrotoxicosis, unspecified without thyrotoxic crisis or storm
CPT/HCPCS: 71045; 80053; 83690; 84484; 84703; 85025; 85379; 87635; 93005; 96361; 96374; 96375; J0696; J1885; J3010; U0003

== ENCOUNTER 2020-01-14 12:24 | Emergency (ER) | payer OTHER ==
[2020-01-14] MEDS ORDERED: Ketorolac Tromethamine 30 MG/ML VIAL ONE (12:43)
[2020-01-14] MEDS ORDERED: Lorazepam 2 MG/ML VIAL ONE (12:43)
[2020-01-14 12:59] LABS: #Eosinphils 0.1 thou/uL (0.0-0.7); #Lymphocytes 2.9 thou/uL (1.20-3.40); #Monocytes 0.6 thou/uL (0.11-0.59); #Neutrophils 2.5 thou/uL (1.40-6.50); %Eosinophils 2.4 % (0.0-10.0); %Lymphocytes 46.3 % (21.0-51.0); %Monocytes 10.3 % (0.0-10.0); Hemoglobin 13.3 g/dL (12.0-16.0); Mean Corpuscular HGB CONC 33.5 g/dL (32.0-36.0); Mean Corpuscular Hemoglobin 29.1 pg (27.0-31.0); Mean Corpuscular Volume 87.1 fL (78.0-98.0); Mean Platelet Volume 9.4 fL (7.4-10.4); Platelet Count 226 thou/uL (130-400); RBC Distribution Width 11.4 % (11.5-14.5); Red Blood Cell (RBC) Count 4.57 mill/uL (4.20-5.40); White Blood Cell (WBC) Count 6.1 thou/uL (4.8-10.8)
[2020-01-14 13:07] LABS: BHCG - Serum Negative (NEGATIVE); Pregs Control Background? CLEAR/WHITE (CLR/WHITE); Pregs Control Bar Appear? YES (CONTROL BAR)
--- NOTE | 2020-01-14 13:24 | RAD ---
SINGLE VIEW CHEST: Date: 01/14/2020 COMPARISON: 01/12/2020. HISTORY: Pneumonia and shortness of breath. Chest pain. FINDINGS: Single view of the chest shows a normal sized cardiomediastinal silhouette. There is no evidence of c onsolidation, mass, or pleural effusion. The bones are unremarkable. IMPRESSION: No evidence of acute cardiopulmonary disease. POS: EAA
[2020-01-14 13:26] LABS: ALT (SGPT) 168 U/L (8-55); AST (SGOT) 88 U/L (5-34); Albumin 4.2 g/dL (3.5-5.0); Alkaline Phosphatase 78 U/L (40-110); Anion Gap 13 mmol/L (10-20); BUN (Urea Nitrogen) 5 mg/dL (7.0-18.7); Bilirubin, Total 0.4 mg/dL (0.2-1.2); Calc. Creatinine Clearance 0 mL/min (70-130); Calcium 8.7 mg/dL (7.8-10.44); Carbon Dioxide 24 mmol/L (22-29); Chloride 103 mmol/L (98-107); Estimated GFR-MDRD Greater than 90; Globulin 3.9 g/dL (2.4-3.5); Glucose 90 mg/dL (70-105); Protein, Total 8.1 g/dL (6.0-8.3); Sodium 136 mmol/L (136-145)
--- NOTE | 2020-01-20 15:41 | EKG ---
Test Reason : SOB Blood Pressure : / mmHG Vent. Rate : 092 BPM Atrial Rate : 092 BPM P-R Int : 138 ms QRS Dur : 080 ms QT Int : 338 ms P-R-T Axes : 062 037 058 degrees QTc Int : 417 ms Normal sinus rhythm Nonspecific T wave abnormality Abnormal ECG Confirmed by JO-ANN NEWMAN, MARYAM ([id number]), newspaper editor SHEMAR GRAY ([id number]) on 01/20/2020 3:41:11 PM Referred By: Confirmed By:MARYAM BUSCH MD
== END 2020-01-14 14:33 | disposition home or self-care (01) ==
LOC: ERS 12:24
DX: J18.9 Pneumonia, unspecified organism (principal); R07.9 Chest pain, unspecified; R74.01 Elevation of levels of liver transaminase levels; E03.9 Hypothyroidism, unspecified; Z79.899 Other long term (current) drug therapy
CPT/HCPCS: 71045; 80053; 84484; 84703; 85025; 93005; 96374; 96375; J1885; J2060

== ENCOUNTER 2020-05-15 16:34 | Emergency (ER) | payer OTHER ==
[~2020-05-15 16:34] MED LIST: Iopamidol-370 76% 500 ML 1 ML ONE
[2020-05-15 17:16] LABS: #Eosinphils 0.1 thou/uL (0.0-0.7); #Lymphocytes 2.8 thou/uL (1.20-3.40); #Monocytes 0.7 thou/uL (0.11-0.59); %Basophils 0.3 % (0.0-1.0); %Eosinophils 1.1 % (0.0-10.0); %Monocytes 8.4 % (0.0-10.0); %Neutrophils 58.2 % (42.0-75.0); Hemoglobin 13.8 g/dL (12.0-16.0); Mean Corpuscular HGB CONC 35.2 g/dL (32.0-36.0); Mean Corpuscular Hemoglobin 30.7 pg (27.0-31.0); Mean Corpuscular Volume 87.2 fL (78.0-98.0); Mean Platelet Volume 8.3 fL (7.4-10.4); Platelet Count 225 thou/uL (130-400); RBC Distribution Width 11.3 % (11.5-14.5); White Blood Cell (WBC) Count 8.6 thou/uL (4.8-10.8)
[2020-05-15 17:23] LABS: BHCG - Serum Negative (NEGATIVE); Pregs Control Background? CLEAR/WHITE (CLR/WHITE); Pregs Control Bar Appear? YES (CONTROL BAR)
--- NOTE | 2020-05-15 17:24 | RAD ---
EXAM: Single view of the chest HISTORY: Covid positive with chest pain COMPARISON: 01/14/2020 FINDINGS: Single view of the chest shows a normal sized cardiomediastinal silhouette. Scattered mild multifocal infiltrates are seen in the proximal ulna wound consistent with Covid pneumonia. No acute osseous abnormality. IMPRESSION: Scattered multifocal infiltrates.
[2020-05-15 17:37] LABS: ALT (SGPT) 100 U/L (8-55); AST (SGOT) 53 U/L (5-34); Alkaline Phosphatase 63 U/L (40-110); Anion Gap 13 mmol/L (10-20); BUN (Urea Nitrogen) 8 mg/dL (7.0-18.7); Bilirubin, Total 0.2 mg/dL (0.2-1.2); Calc. Creatinine Clearance 0 mL/min (70-130); Calcium 8.5 mg/dL (7.8-10.44); Carbon Dioxide 20 mmol/L (22-29); Chloride 109 mmol/L (98-107); Globulin 4.1 g/dL (2.4-3.5); Glucose 93 mg/dL (70-105); Potassium 4.1 mmol/L (3.5-5.1); Protein, Total 8.1 g/dL (6.0-8.3); Sodium 138 mmol/L (136-145)
[2020-05-15] MEDS ORDERED: Ketorolac Tromethamine 30 MG/ML VIAL ONE (18:16)
[2020-05-15] MEDS ORDERED: Aspirin 325 MG TAB ONE (18:16)
--- NOTE | 2020-05-15 19:08 | CT ---
EXAM: CTA of the chest HISTORY: Covid positive with chest pain COMPARISON: Chest x-ray 05/15/2020 TECHNIQUE: Multiple contiguous axial images were obtained a CTA of the chest with contrast per pulmon karoline embolism protocol. 3-D oblique MIP reformats and direct coronal reformats were performed. FINDINGS: HEART: Normal in size without focal cardiac abnormality. PULMONARY ARTERIES: Normal in caliber without filling defects to suggest pulmonary emboli. MEDIASTINUM: No hilar or mediastinal lymphadenopathy. LUNGS: An infiltrate is seen in the right lower lobe. The rest of the lungs are spared. PLEURAL SPACE: No pleural effusion or pneumothorax. CHEST WALL SOFT TISSUES: Unremarkable VISUALIZED OSSEOUS STRUCTURES: No acute abnormality. VISUALIZED SUBDIAPHRAGMATIC STRUCTURES: Unremarkable IMPRESSION: 1. No evidence of pulmonary thromboembolism 2. Right lower lobe pneumonia
== END 2020-05-15 20:24 | disposition home or self-care (01) ==
LOC: ERS 16:34
DX: U07.1 COVID-19 (principal); J12.82 Pneumonia due to coronavirus disease 2019
CPT/HCPCS: 36415; 71045; 71275; 80053; 84484; 84703; 85025; 85379; 93005; 96374; J1885; Q9967

== ENCOUNTER 2020-05-25 12:10 | Outpatient (CLI) | payer OTHER | END 2020-05-25 12:11 | disposition home or self-care (01) | LOC: BICRAD 12:10 | PROVIDERS: ATTEND Family Medicine | DX: U07.1 COVID-19 (principal); J12.82 Pneumonia due to coronavirus disease 2019; R06.02 Shortness of breath | CPT/HCPCS: 71046 ==

== ENCOUNTER 2020-10-08 21:39 | Emergency (ER) | payer OTHER ==
[2020-10-08 23:17] LABS: Anion Gap 19 mmol/L (10-20); BUN (Urea Nitrogen) 7 mg/dL (7.0-18.7); Calc. Creatinine Clearance 0 mL/min (70-130); Calcium 9.3 mg/dL (7.8-10.44); Carbon Dioxide 20 mmol/L (22-29); Chloride 100 mmol/L (98-107); Glucose 90 mg/dL (70-105); Potassium 3.8 mmol/L (3.5-5.1); Sodium 135 mmol/L (136-145)
[2020-10-08 23:20] LABS: #Basophils 0.1 thou/uL (0.0-0.2); #Eosinphils 0.1 thou/uL (0.0-0.7); #Lymphocytes 2.5 thou/uL (1.20-3.40); #Monocytes 0.8 thou/uL (0.11-0.59); %Basophils 1.4 % (0.0-1.0); %Eosinophils 1.1 % (0.0-10.0); %Lymphocytes 39.1 % (21.0-51.0); %Monocytes 11.8 % (0.0-10.0); %Neutrophils 46.6 % (42.0-75.0); Hemoglobin 13.9 g/dL (12.0-16.0); Mean Corpuscular HGB CONC 32.2 g/dL (32.0-36.0); Mean Corpuscular Hemoglobin 28.5 pg (27.0-31.0); Mean Corpuscular Volume 88.5 fL (78.0-98.0); Mean Platelet Volume 8.4 fL (7.4-10.4); Platelet Count 244 thou/uL (130-400); RBC Distribution Width 11.6 % (11.5-14.5); Red Blood Cell (RBC) Count 4.88 mill/uL (4.20-5.40); White Blood Cell (WBC) Count 6.5 thou/uL (4.8-10.8)
[2020-10-08 23:38] LABS: BHCG - Serum Negative (NEGATIVE); Pregs Control Background? CLEAR/WHITE (CLR/WHITE); Pregs Control Bar Appear? YES (CONTROL BAR)
[2020-10-09] MEDS ORDERED: Ondansetron PF 4 MG/2 ML Vial ONE (01:24)
[2020-10-09 03:05] LABS: Bacteria/HPF None Seen HPF (None Seen); Bilirubin Negative (Negative); Blood, Urine Negative (Negative); Clarity Turbid (Clear); Glucose, Urine (Dipstick) Normal (Negative); Ketone, Urine Negative (Negative); Leukocyte 25 Leu/uL (Negative); Nitrite 1+ (Negative); Protein, Urine (Dipstick) 30 mg/dL (Neg-Trace); RBC/HPF None Seen HPF (0-3); Specific Gravity, Urine 1.031 (1.002-1.036); Urobilinogen Normal mg/dL (Less than 2); pH, Urine 5.5 (5.0-9.0)
[2020-10-09 03:07] LABS: Pregnancy Test - Urine (BHCG) Negative (Negative); Pregu Control Background? CLEAR/WHITE (CLR/WHITE); Pregu Control Bar Appear? YES (CONTROL BAR); Specific Gravity 1.027 (1.002-1.036)
== END 2020-10-09 03:15 | disposition home or self-care (01) ==
LOC: ERS 21:39
DX: R10.13 Epigastric pain (principal); R11.2 Nausea with vomiting, unspecified; R19.7 Diarrhea, unspecified; I10 Essential (primary) hypertension
CPT/HCPCS: 36415; 80048; 81003; 81015; 81025; 83690; 84703; 85025; 96372; 96374; J0500; J2405

== ENCOUNTER 2021-02-13 23:17 | Emergency (ER) | payer OTHER, MEDICAID ==
[2021-02-14 03:14] LABS: ALT (SGPT) 50 U/L (8-55); AST (SGOT) 29 U/L (5-34); Albumin 4.2 g/dL (3.5-5.0); Alkaline Phosphatase 75 U/L (40-110); Anion Gap 13 mmol/L (10-20); BUN (Urea Nitrogen) 12 mg/dL (7.0-18.7); Bilirubin, Total 0.2 mg/dL (0.2-1.2); Calc. Creatinine Clearance 0 mL/min (70-130); Calcium 9.4 mg/dL (7.8-10.44); Carbon Dioxide 22 mmol/L (22-29); Chloride 105 mmol/L (98-107); Globulin 3.6 g/dL (2.4-3.5); Glucose 103 mg/dL (70-105); Potassium 4.1 mmol/L (3.5-5.1); Protein, Total 7.8 g/dL (6.0-8.3); Sodium 136 mmol/L (136-145)
[2021-02-14 03:34] LABS: #Basophils 0.1 thou/uL (0.0-0.2); #Eosinphils 0.3 thou/uL (0.0-0.7); #Lymphocytes 4.2 thou/uL (1.20-3.40); #Monocytes 0.6 thou/uL (0.11-0.59); #Neutrophils 4.2 thou/uL (1.40-6.50); %Eosinophils 2.8 % (0.0-10.0); %Lymphocytes 44.9 % (21.0-51.0); %Monocytes 6.8 % (0.0-10.0); %Neutrophils 44.6 % (42.0-75.0); Hemoglobin 13.1 g/dL (12.0-16.0); Mean Corpuscular HGB CONC 34.5 g/dL (32.0-36.0); Mean Corpuscular Volume 86.8 fL (78.0-98.0); Mean Platelet Volume 9.2 fL (7.4-10.4); Platelet Count 278 thou/uL (130-400); RBC Distribution Width 11.8 % (11.5-14.5); Red Blood Cell (RBC) Count 4.36 mill/uL (4.20-5.40); White Blood Cell (WBC) Count 9.4 thou/uL (4.8-10.8)
== END 2021-02-14 04:15 | disposition home or self-care (01) ==
LOC: ERS 23:17
DX: O03.9 Complete or unspecified spontaneous abortion without complication (principal); E21.3 Hyperparathyroidism, unspecified
CPT/HCPCS: 36415; 76856; 80053; 84702; 85025; 86900; 86901

== ENCOUNTER 2021-03-02 16:22 | Outpatient (CLI) | payer OTHER, MEDICAID | END 2021-03-02 16:23 | disposition home or self-care (01) | LOC: BICRAD 16:22 | PROVIDERS: ATTEND Registered Nurse Community Health | DX: R05.9 Cough, unspecified (principal) | CPT/HCPCS: 71046 ==

== ENCOUNTER 2021-04-19 19:41 | Emergency (ER) | payer OTHER, MEDICAID ==
[2021-04-19 20:44] LABS: #Lymphocytes 1.4 thou/uL (1.20-3.40); #Neutrophils 10.3 thou/uL (1.40-6.50); %Basophils 0.1 % (0.0-1.0); %Eosinophils 0.2 % (0.0-10.0); %Lymphocytes 11.2 % (21.0-51.0); %Monocytes 7.8 % (0.0-10.0); %Neutrophils 80.7 % (42.0-75.0); Hemoglobin 12.8 g/dL (12.0-16.0); Mean Corpuscular Hemoglobin 30.2 pg (27.0-31.0); Mean Corpuscular Volume 88.8 fL (78.0-98.0); Mean Platelet Volume 7.5 fL (7.4-10.4); Platelet Count 253 thou/uL (130-400); RBC Distribution Width 12.3 % (11.5-14.5); Red Blood Cell (RBC) Count 4.24 mill/uL (4.20-5.40); White Blood Cell (WBC) Count 12.8 thou/uL (4.8-10.8)
[2021-04-19 20:46] LABS: Pregs Control Background? CLEAR/WHITE (CLR/WHITE); Pregs Control Bar Appear? YES (CONTROL BAR)
[2021-04-19 20:48] LABS: BHCG - Serum POSITIVE (NEGATIVE)
[2021-04-19] MEDS ORDERED: Ondansetron PF 4 MG/2 ML Vial ONE (21:02)
[2021-04-19] MEDS ORDERED: Ibuprofen 800 MG TAB ONE (21:02)
[2021-04-19 21:04] LABS: ALT (SGPT) 33 U/L (8-55); AST (SGOT) 18 U/L (5-34); Albumin 3.9 g/dL (3.5-5.0); Alkaline Phosphatase 66 U/L (40-110); Anion Gap 11 mmol/L (10-20); BUN (Urea Nitrogen) 6 mg/dL (7.0-18.7); Bilirubin, Total 0.5 mg/dL (0.2-1.2); Calc. Creatinine Clearance 0 mL/min (70-130); Calcium 8.9 mg/dL (7.8-10.44); Carbon Dioxide 22 mmol/L (22-29); Chloride 102 mmol/L (98-107); Globulin 3.8 g/dL (2.4-3.5); Glucose 98 mg/dL (70-105); Potassium 3.7 mmol/L (3.5-5.1); Protein, Total 7.7 g/dL (6.0-8.3); Sodium 131 mmol/L (136-145)
[2021-04-19 22:38] LABS: Bilirubin Negative (Negative); Blood, Urine Negative (Negative); Clarity Clear (Clear); Glucose, Urine (Dipstick) Normal (Negative); Ketone, Urine 20 mg/dL (Negative); Leukocyte Negative Leu/uL (Negative); Nitrite Negative (Negative); Protein, Urine (Dipstick) 10 mg/dL (Neg-Trace); Specific Gravity, Urine 1.024 (1.002-1.036); Urobilinogen Normal mg/dL (Less than 2)
== END 2021-04-19 23:20 | disposition home or self-care (01) ==
LOC: ERS 19:41
DX: O21.9 Vomiting of pregnancy, unspecified (principal); E78.5 Hyperlipidemia, unspecified; Z20.822 Contact with and (suspected) exposure to COVID-19; Z3A.00 Weeks of gestation of pregnancy not specified
CPT/HCPCS: 36415; 71045; 80053; 81003; 83605; 84703; 85025; 87086; 87804; 96374; J2405